=== PATIENT | male | born 1995 | race Caucasian/White ===

== ENCOUNTER 2016-11-28 18:05 | Emergency (ER) | payer OTHER ==
[2016-11-28] MEDS ORDERED: SILVER SULFADIAZINE 1% CREAM 50 GM TP ONE (20:22)
[2016-11-28] MEDS ORDERED: HYDROCODONE/ACETAMINOPHEN 5-325 MG 6 TAB/DSPK PO PRN (20:22)
--- NOTE | 2016-11-28 20:28 | ER Document Report ---
HPI - HPI Patient complains to provider of: Sunburn Onset: Other Onset/Duration: Sudden Quality of pain: Burning Severity: Moderate Pain Level: 4 Context: Patient was out in the sun without sunscreen 2 days ago. Now has blisters across his upper chest, feels prickly sensation and his skin is burning. Associated Symptoms: None Exacerbated by: Movement, Other - Clothing, heat Relieved by: Denies Similar symptoms previously: No Recently seen / treated by doctor: No - ROS ROS below otherwise negative: Yes Systems Reviewed and Negative: Yes All other systems reviewed and negative - CONSTITUTIONAL Constitutional: DENIES: Fever - EENT EENT: DENIES: Congestion - NEURO Neurology: DENIES: Headache - CARDIOVASCULAR Cardiovascular: DENIES: Chest pain - RESPIRATORY Respiratory: DENIES: Trouble Breathing - GASTROINTESTINAL Gastrointestinal: DENIES: Abdominal Pain - URINARY Urinary: DENIES: Dysuria - DERM Skin Color: Flushed, Erythema Skin Problems: Blister Past Medical History - General Information source: Patient - Social History Smoking Status: Never Smoker Frequency of alcohol use: None Drug Abuse: None Lives with: Spouse/Significant other Family History: Reviewed & Not Pertinent - Medical History Medical History: Negative Renal/ Medical History: Denies: Hx Peritoneal Dialysis Surgical Hx: Negative - Immunizations Immunizations up to date: Yes Vertical Provider Document - CONSTITUTIONAL Agree With Documented VS: Yes Exam Limitations: No Limitations General Appearance: WD/WN, No Apparent Distress - HEENT HEENT: Atraumatic, Normocephalic - RESPIRATORY Respiratory: Breath Sounds Normal, No Respiratory Distress O2 Sat by Pulse Oximetry: 100 - CARDIOVASCULAR Cardiovascular: Regular Rate, Regular Rhythm - MUSCULOSKELETAL/EXTREMETIES Musculoskeletal/Extremeties: [place] FROM - NEURO Level of Consciousness: Awake, Alert, Appropriate - DERM Integumentary: Warm, Dry, Rash - First-degree sunburn noted to abdomen, across shoulders, thighs and lower legs. Scattered intact blisters across upper chest. Course - Vital Signs Vital signs: Temp Pulse Resp BP Pulse Ox 97.8 F 61 16 126/80 H 100 11/28/16 19:02 11/28/16 19:02 11/28/16 19:02 11/28/16 19:02 11/28/16 19:02 Discharge - Discharge Clinical Impression: Sunburn Condition: Good Disposition: HOME, SELF-CARE Additional Instructions: Use Silvadene cream as prescribed Aspirin for pain, [place] as needed Cool compresses Follow-up with your BAS for recheck Sunday, earlier if symptoms worsen Return as needed Prescriptions: Silver Sulfadiazine [Silvadene 1% Cream 400 gm] 1 applic TP DAILY #1 jar Forms: Restricted Release
[2016-11-28 20:54] VITALS: BP 132/67
== END 2016-11-28 20:59 | disposition home or self-care (01) ==
LOC: ER 18:05
DX: L55.1 Sunburn of second degree (principal)
CPT/HCPCS: 99282; J3490